=== PATIENT | male | born 1965 | race African-American/Black ===

== ENCOUNTER 2024-01-30 14:51 | Emergency (ER) | payer MEDICARE, SELFPAY ==
--- NOTE | 2024-01-30 15:01 | ED.UPPEXIN ---
HPI - Extremity Injury (Upper) General Chief Complaint: Extremity Problem,Nontraumatic Stated Complaint: Left Hand Finger Pain Time Seen by Provider: 01/30/24 15:10 Source: patient Mode of arrival: ambulatory Limitations: no limitations History of Present Illness HPI narrative: Pedro is a 4-year-old male patient presenting to the clinic today with complaints of left index finger pain. He reports that this has been going on for the last few days. States that he thought was the fungal infection on his finger so he ended up putting some Tinactin on the finger. Is having redness and swelling to the distal finger and states that looks like his fingers turning green. Denies any fever or chills. Related Data Home Medications Medication Instructions Recorded Confirmed amlodipine 10 mg tablet 10 mg PO DAILY 01/30/24 01/30/24 chlorthalidone 25 mg tablet 25 mg PO DAILY 01/30/24 01/30/24 ezetimibe 10 mg tablet 10 mg PO DAILY 01/30/24 01/30/24 losartan 50 mg tablet 50 mg PO DAILY 01/30/24 01/30/24 pravastatin 20 mg tablet 20 mg PO DAILY 01/30/24 01/30/24 Allergies Allergy/AdvReac Type Severity Reaction Status Date / Time No Known Allergies Allergy Verified 01/30/24 14:58 Review of Systems Review of Systems: Pertinent positives per HPI. Patient denies any fever, chills, rash, headache, visual changes, dizziness, cough, runny nose, sore throat, shortness of breath, chest pain, palpitations, nausea, vomiting, diarrhea, constipation, abdominal pain, or any urinary issues. PMFSH Comments At the time of my signature, I reviewed and agree with the nursing past medical, surgical, social, and family history. There is no relevant family history pertinent to the patient complaint. Exam Narrative: General: Well-developed, well nourished, in no apparent distress Head: Normocephalic, atraumatic. Cardio: Regular rate and rhythm, s1 and s2 normal, no murmur appreciated. Resp: Clear to auscultation bilaterally, no rhonchi, rales, wheezing or rubs. Integumentary: [place], warm, and dry-redness, tenderness, swelling, and yellowish purulent discharge under the skin of the left volar aspect of the distal index finger. Area was cleansed and a 22 gauge needle was used to drain some yellow purulent discharge. Course Course Emergency Course: Portions of this record may have been created with voice recognition software. Level of Care: Express Care Visit Vital Signs Vital signs: Vital Signs Temperature 36.8 C 01/30/24 15:05 Pulse Rate 71 01/30/24 15:05 Respiratory Rate 16 01/30/24 15:05 Blood Pressure 147/80 H 01/30/24 15:05 Pulse Oximetry 98 01/30/24 15:05 Oxygen Delivery Room Air 01/30/24 15:05 Temperature 36.8 C 01/30/24 15:05 Pulse Rate 71 01/30/24 15:05 Respiratory Rate 16 01/30/24 15:05 Blood Pressure 147/80 H 01/30/24 15:05 Pulse Oximetry 98 01/30/24 15:05 Oxygen Delivery Room Air 01/30/24 15:05 Vital signs reviewed MDM - Extremity Injury (Upper) MDM Narrative Medical decision making narrative: At the time of visit patient is resting comfortably on the exam table. Patient appears to be nontoxic. Plan: I suspect patient has a skin infection/early cellulitis to the left distal index finger. Will place the patient on doxycycline. Supportive measures were discussed with the patient and they voiced understanding discharge instructions and agrees to treatment plan. Return precautions reviewed Differential Diagnosis Differential diagnosis: Likely other (Finger infection, cellulitis, paronychia) Discharge Plan Discharge Clinical Impression: Bacterial skin infection Patient Disposition: Home, Self-Care Condition: Stable Instructions: Antibiotic Form, Cellulitis (ED) Additional Instructions: Keep wound clean and dry Take doxycycline as prescribed Wound check in 2-3 days by your primary care doctor Go to the emergency room if infection worsens- Watch for sign
[2024-01-30 15:05] VITALS: BP 147/80; PULSE 71; RESP 16; TEMP 36.8; O2SAT 98
== END 2024-01-30 15:30 | disposition home or self-care (01) ==
PROVIDERS: Emergency Provider Nurse Practitioner Family
DX: B36.9 Superficial mycosis, unspecified (principal); E78.00 Pure hypercholesterolemia, unspecified; I10 Essential (primary) hypertension; E11.9 Type 2 diabetes mellitus without complications
CPT/HCPCS: 99213; G0463